=== PATIENT | female | born 1950 | race Caucasian/White ===

== ENCOUNTER 2016-06-16 11:07 | Emergency (ER) | payer OTHER ==
[2016-06-16 11:31] VITALS: BP 156/80; PULSE 94; RESP 20; O2SAT 93
[2016-06-16] MEDS ORDERED: IPRATROPIUM/ALBUTEROL 3 ML DEYVIAL ONE (11:33)
[2016-06-16] MEDS ORDERED: AZITHROMYCIN 250 MG TAB PO ONE ×2 (11:33→11:44)
--- NOTE | 2016-06-16 11:34 | UCPHY ---
[id number] 4Bd Time Seen by Provider: 06/16/16 11:32 HPI/ROS: Chief complaint: Fever, chills, cough, shortness of breath HPI: Patient is presenting complaining of 1 day of cough, congestion, fevers and chills and body aches. Patient has a history of asthma. She has been needing to use albuterol overnight which is atypical for her. She is normally taking Advair. She has had fevers and chills subjectively at home. She has taken acetaminophen for this with some relief. She is not take ibuprofen that she had is on anti-platelet agents for coronary disease. No nausea or vomiting. Has had some wheezing with the mildly productive cough of whitish sputum. ROS: 10 point Review of Systems is negative except as noted in the HPI. Physical exam: Gen: Awake, Alert, No Distress HEENT: Ears: Bilateral TMs are normal, no erythema or bulging. External auditory canals are clear. Nose: no rhinorrhea Eyes: PERRLA, EOMI Mouth: Moist mucosa Neck: Supple, no JVD Chest: nontender, diffuse expiratory wheezing without focal rales or rhonchi Heart: S1, S2 normal, no murmur Abd: Soft, non-tender, no guarding Back: no CVA tenderness, no midline tenderness Ext: no edema, non-tender Skin: no rash Neuro: CN II-XII intact, Sensation grossly intact, Strength 5/5 in bilateral upper and lower extremities - Personal History Current Tetanus/Diphtheria Vaccine: Yes - Medical/Surgical History Hx Asthma: Yes Hx Chronic Respiratory Disease: No Hx Diabetes: No Hx Cardiac Disease: Yes Hx Renal Disease: No Hx Cirrhosis: No Hx Alcoholism: No Hx HIV/AIDS: No Hx Splenectomy or Spleen Trauma: No Other PMH: Breast CA with L mastectomy; partial R mastectomy. stent - Family History Significant Family History: No pertinent family hx - Social History Smoking Status: Never smoked Constitutional: Initial Vital Signs Temperature (C) 39.4 C H 06/16/16 11:28 Heart Rate 94 06/16/16 11:28 Respiratory Rate 20 06/16/16 11:28 Blood Pressure 156/80 H 06/16/16 11:28 O2 Sat (%) 93 06/16/16 11:28 O2 Delivery Mode Room Air Allergies/Adverse Reactions: Sulfa (Sulfonamide Antibiotics) Allergy (Severe, Verified 06/16/16 11:27) Hives vancomycin Allergy (Verified 06/16/16 11:27) Red Man Syndrome Home Medications: Medication Instructions Recorded AZITHROMYCIN [Z-PACK] 250 mg PO DAILY #6 tab 06/16/16 Advair 250/50 (*) 06/16/16 Aspirin 06/16/16 Bystolic 06/16/16 Effient 06/16/16 Exemestane 06/16/16 Nexium 06/16/16 Oseltamivir Phosphate [Tamiflu 75 75 mg PO BID #10 cap 06/16/16 mg (*)] Simvastatin 06/16/16 Medical Decision Making ED Course/Re-evaluation: 66-year-old asthmatic with bronchitis type symptoms and fever. She will be given a DuoNeb here. Will start her on azithromycin. Will also check an influenza wash as she would be an appropriate candidate for Tamiflu if this is positive. Influenza a is positive. She has been given Tamiflu here. Will discharge with Tamiflu, continue azithromycin. Will also send her home with a an MDI spacer. She will follow up with primary care physician in 2-3 days for re-evaluation. Return emergency department for worsening. - Data Points Laboratory Results: 06/16/16 11:20 Influenza Typ A,B (DFA) POSITIVE FOR FLU A H (NEGATIVE) Medications Given: Discontinued Medications Albuterol Sulfate (Proventil Inh Prepack) 1 mdi TAKEHOME EDNOW ONE Stop: 06/16/16 12:16 Last Admin: 06/16/16 12:15 Dose: 1 mdi Albuterol/Ipratropium (Duoneb) 3 ml IH EDNOW ONE Stop: 06/16/16 11:45 Last Admin: 06/16/16 11:33 Dose: 3 ml Azithromycin (Zithromax) 500 mg PO EDNOW ONE PRN Reason: Protocol Stop: 06/16/16 11:45 Last Admin: 06/16/16 11:33 Dose: 500 mg Oseltamivir Phosphate (Tamiflu) 75 mg PO EDNOW ONE Stop: 06/16/16 11:37 Last Admin: 06/16/16 11:42 Dose: 75 mg Departure - Departure Disposition: Home, Routine, Self-Care Clinical Impression: Influenza A Condition: Good Instructions: Influenza (ED) Additional Instructions: Take the full course of Tamiflu and antibiotics. You may take acetaminophen 1000 mg every 4-6 hours as needed for fevers. Make sure to use a spacer when using your inhaler. Return Urgent Care or the emergency depart for increasing shortness of breath, uncontrolled fevers or chills. No nausea, vomiting, or any other concerns. Referrals: Kalli Troy MD [Primary Care Provider] - As per Instructions Prescriptions: Oseltamivir Phosphate [Tamiflu 75 mg (*)] 75 mg PO BID #10 cap AZITHROMYCIN [Z-PACK] 250 mg PO DAILY #6 tab - PQRS PQRS Measurement: 134: Depression screening and followup, PRIME MD-PHQ2 (12 years and older) Over the last 2 weeks, how often have you been bothered by any of the following problems? 1. Feeling down, depressed, or hopeless? 2. Little interest or pleasure in doing things? Patient answered no to both 1 and 2 130: Documentation of medications. Reviewed all patient medications, doses, route and frequency. 226: Do you smoke? No. 47: 65 and older: Advanced care planning. Patient designates surrogate decision maker as parent spouse . Patient has advanced directive. 51: 18 years old and older with diagnosis of COPD, spirometry performance. Patient has no history of COPD 52: 18 years old and older with COPD and symptoms of COPD or FEV1<60% predicted prescribed a B Agonist. Spirometry not performed; equipment not available.
[2016-06-16] MEDS ORDERED: OSELTAMIVIR PHOSPHATE 75 MG CAP PO ONE (11:36)
[2016-06-16] MEDS ORDERED: IPRATROPIUM/ALBUTEROL 3 ML DEYVIAL IH ONE (11:44)
[2016-06-16] MEDS ORDERED: ALBUTEROL INH PREPACK MDI TAKEHOME ONE ×2 (12:10→12:15)
[2016-06-16 12:38] VITALS: TEMP 101.5
== END 2016-06-16 12:29 | disposition home or self-care (01) ==
LOC: CED 11:07
DX: J11.1 Influenza due to unidentified influenza virus with other respiratory manifestations (principal); Z85.3 Personal history of malignant neoplasm of breast; J45.909 Unspecified asthma, uncomplicated; Z79.51 Long term (current) use of inhaled steroids
CPT/HCPCS: 87400-PO; G0463-PO

== ENCOUNTER → 2016-08-07 | Outpatient (CLI) | payer OTHER | LOC: FIMAGING 14:04 | PROVIDERS: ATTEND Internal Medicine Hematology & Oncology | DX: Z13.820 Encounter for screening for osteoporosis (principal); M85.80 Other specified disorders of bone density and structure, unspecified site ==

== ENCOUNTER → 2016-09-20 | Outpatient (CLI) | payer OTHER | LOC: CIMAGING 14:46 | PROVIDERS: ATTEND Family Medicine | DX: Z12.31 Encounter for screening mammogram for malignant neoplasm of breast (principal); Z85.3 Personal history of malignant neoplasm of breast; Z90.12 Acquired absence of left breast and nipple; Z92.3 Personal history of irradiation | CPT/HCPCS: G0202-52 ==

== ENCOUNTER → 2017-04-18 | Outpatient (CLI) | payer OTHER | LOC: CIMAGING 11:38 | PROVIDERS: ATTEND Internal Medicine Pulmonary Disease | DX: I51.7 Cardiomegaly (principal) | CPT/HCPCS: 71020-PO ==

== ENCOUNTER → 2017-04-26 | Outpatient (CLI) | payer OTHER | LOC: FIMAGING 13:16 | PROVIDERS: ATTEND Family Medicine | DX: K59.00 Constipation, unspecified (principal); M54.9 Dorsalgia, unspecified ==

== ENCOUNTER → 2017-05-14 | Outpatient (CLI) | payer OTHER | LOC: CIMAGING 09:37 | PROVIDERS: ATTEND Internal Medicine Endocrinology, Diabetes & Metabolism | DX: R06.02 Shortness of breath (principal); R42 Dizziness and giddiness | CPT/HCPCS: 93880-PO ==

== ENCOUNTER → 2017-10-31 | Outpatient (CLI) | payer OTHER | LOC: CIMAGING 14:12 | PROVIDERS: ATTEND Family Medicine | DX: Z12.31 Encounter for screening mammogram for malignant neoplasm of breast (principal); Z85.3 Personal history of malignant neoplasm of breast ==

== ENCOUNTER → 2018-01-25 | Outpatient (CLI) | payer OTHER | LOC: FIMAGING 09:38 | PROVIDERS: ATTEND Internal Medicine Hematology & Oncology | DX: Z13.820 Encounter for screening for osteoporosis (principal); M81.0 Age-related osteoporosis without current pathological fracture; Z78.0 Asymptomatic menopausal state ==